=== PATIENT | male | born 2000 | race Caucasian/White ===

== ENCOUNTER 2022-01-04 09:34 | Emergency (ER) | payer OTHER ==
[2022-01-04] MEDS ORDERED: Lidocaine 1% (PF) 30 ML VIAL ONE ×2 (09:55→10:08)
== END 2022-01-04 10:39 | disposition home or self-care (01) ==
LOC: CSHERS 09:34
DX: S61.212A Laceration without foreign body of right middle finger without damage to nail, initial encounter (principal); W45.8XXA Other foreign body or object entering through skin, initial encounter
CPT/HCPCS: 12002; J2001